=== PATIENT | female | born 1980 | race Caucasian/White ===

== ENCOUNTER 2016-04-22 15:42 | Emergency (ER) | payer BC ==
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
--- NOTE | 2016-04-22 16:20 | ED CLINICAL REPORT ---
Clinical Report - Physicians/Mid Levels [facility] [address] [place] [place] [address] 04/22/2016 15:44 Patient: JOHNY DUARTE Time Seen: 1644Apr 22 2016. Arrived- By private vehicle. Historian- patient. HISTORY OF PRESENT ILLNESS Chief Complaint: Injury to finger. (L thumb). The injury happened just prior to arrival. Patient is experiencing mild pain. Patient denies injury to the head. ( L thumb lac from knife). REVIEW OF SYSTEMS The patient sustained a laceration. No tingling. All systems otherwise negative, except as recorded above. PAST HISTORY The patient's dominant hand is the right. She has not had a prior injury to the same area. Tetanus immunization status is up-to-date. Problems: Chronic Back Pain. Vertigo. Dizziness. LNMP - Last Normal Menstrual Period. Contusion. Cervical Strain. Additional Surgeries: Adenoidectomy. Cholecystectomy. . Knee Surgery. Tonsillectomy. Tubal Ligation. Tympanostomy Tubes. Medications: None. Allergies: No Known Drug Allergy. SOCIAL HISTORY No drug use. ADDITIONAL NOTES The nursing notes have been reviewed. PHYSICAL EXAM Vital Signs: 04/22/2016 15:53 BP: 112/66. HR: 73. RR: 18. O2 saturation: 100%. Temp: 98.4 F. Appearance: Alert. No acute distress. Head: Head atraumatic. CVS: Normal heart rate and rhythm. Heart sounds normal. Respiratory: No respiratory distress. Breath sounds normal. Skin: Skin warm. Extremities: Left thumb: laceration- SEE LACERATION PROCEDURE NOTE. (dorsal proximal lac 0.5 cm, well approximated, good distal rom, and strength). No ecchymosis or puncture wound. Neuro, Vascular and Tendons: Vascular status intact. Capillary refill not prolonged. Motor intact. No functional tendon deficit. PROGRESS AND PROCEDURES Laceration Repair: Time: 1654Apr 22 2016. Time-out completed immediately before the procedure. Length: 1.0cm cm. Complexity: simple (closed with tissue adhesive). Closure of superficial layer. Skin adhesive used. Post-procedure: she is stable and there are no complications. Bleeding is controlled and neuro-vascular status is intact distal to the wound. Dressing applied. Tetanus immunization up-to-date. Course of Care: Pt with full rom, no neurovascular compromise. Full rom with good strength. No fb. NO signs of erythema/ or concern for infection. Patient is stable. Physical exam findings are improved. Symptoms better. Patient/family counseled. Disposition: Discharged. Condition: good. CLINICAL IMPRESSION Single superficial laceration to the right thumb. INSTRUCTIONS Limit use of your hand. (no water). OTC Medications: Take OTC medications according to label instructions. Available over the counter. Acetaminophen (available over the counter): take according to label instructions. Motrin (available over the counter): take according to label instructions. Follow-up: Follow up with your doctor in three days. Understanding of the discharge instructions verbalized by patient. (Electronically signed by Barbara Luciano P.A.-C 04/22/2016 17:15)
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
--- NOTE | 2016-04-22 16:20 | ED CLINICAL REPORT ---
Clinical Report - Physicians/Mid Levels [facility] [address] [place] [place] [address] 04/22/2016 15:44 Patient: JOHNY DUARTE Time Seen: 1644Apr 22 2016. Arrived- By private vehicle. Historian- patient. HISTORY OF PRESENT ILLNESS Chief Complaint: Injury to finger. (L thumb). The injury happened just prior to arrival. Patient is experiencing mild pain. Patient denies injury to the head. ( L thumb lac from knife). REVIEW OF SYSTEMS The patient sustained a laceration. No tingling. All systems otherwise negative, except as recorded above. PAST HISTORY The patient's dominant hand is the right. She has not had a prior injury to the same area. Tetanus immunization status is up-to-date. Problems: Chronic Back Pain. Vertigo. Dizziness. LNMP - Last Normal Menstrual Period. Contusion. Cervical Strain. Additional Surgeries: Adenoidectomy. Cholecystectomy. . Knee Surgery. Tonsillectomy. Tubal Ligation. Tympanostomy Tubes. Medications: None. Allergies: No Known Drug Allergy. SOCIAL HISTORY No drug use. ADDITIONAL NOTES The nursing notes have been reviewed. PHYSICAL EXAM Vital Signs: 04/22/2016 15:53 BP: 112/66. HR: 73. RR: 18. O2 saturation: 100%. Temp: 98.4 F. Appearance: Alert. No acute distress. Head: Head atraumatic. CVS: Normal heart rate and rhythm. Heart sounds normal. Respiratory: No respiratory distress. Breath sounds normal. Skin: Skin warm. Extremities: Left thumb: laceration- SEE LACERATION PROCEDURE NOTE. (dorsal proximal lac 0.5 cm, well approximated, good distal rom, and strength). No ecchymosis or puncture wound. Neuro, Vascular and Tendons: Vascular status intact. Capillary refill not prolonged. Motor intact. No functional tendon deficit. PROGRESS AND PROCEDURES Laceration Repair: Time: 1654Apr 22 2016. Time-out completed immediately before the procedure. Length: 1.0cm cm. Complexity: simple (closed with tissue adhesive). Closure of superficial layer. Skin adhesive used. Post-procedure: she is stable and there are no complications. Bleeding is controlled and neuro-vascular status is intact distal to the wound. Dressing applied. Tetanus immunization up-to-date. Course of Care: Pt with full rom, no neurovascular compromise. Full rom with good strength. No fb. NO signs of erythema/ or concern for infection. Patient is stable. Physical exam findings are improved. Symptoms better. Patient/family counseled. Disposition: Discharged. Condition: good. CLINICAL IMPRESSION Single superficial laceration to the right thumb. INSTRUCTIONS Limit use of your hand. (no water). OTC Medications: Take OTC medications according to label instructions. Available over the counter. Acetaminophen (available over the counter): take according to label instructions. Motrin (available over the counter): take according to label instructions. Follow-up: Follow up with your doctor in three days. Understanding of the discharge instructions verbalized by patient. (Electronically signed by Barbara Luciano P.A.-C 04/22/2016 17:15)
--- NOTE | 2016-04-22 19:16 | ED MAR SUMMARY ---
..... Medication Administration Record [facility] [address] [place], [place] [id number] Patient: JOHNY DUARTE Visit ID: [id number] 36y, F Weight: 73.4 kg Height/Length: 66 in BMI: 26.1 ALLERGIES: No Known Drug Allergy
--- NOTE | 2016-04-22 19:16 | ED MAR SUMMARY ---
..... Medication Administration Record [facility] [address] [place], [place] [id number] Patient: JOHNY DUARTE Visit ID: [id number] 36y, F Weight: 73.4 kg Height/Length: 66 in BMI: 26.1 ALLERGIES: No Known Drug Allergy
--- NOTE | 2016-04-22 19:16 | ED DISCHARGE INSTRUCTIONS ---
Patient: JOHNY DUARTE General Instructions [facility] VisitID: [id number] [place] [address] 36y, F Registration Date/Time: 04/22/2016 Single superficial laceration to the right thumb. INSTRUCTIONS Limit use of your hand. (no water). OTC Medications: Take OTC medications according to label instructions. Available over the counter. Acetaminophen (available over the counter): take according to label instructions. Motrin (available over the counter): take according to label instructions. Follow-up: Follow up with your doctor in three days. Understanding of the discharge instructions verbalized by patient. ADDITIONAL INFORMATION Laceration(Skin Glue) A laceration is a cut through the skin. You have a laceration that has been closed with a type of skin glue. Home Care Medications: Acetaminophen (Tylenol) or ibuprofen (Motrin, Advil) may be taken for pain, unless another pain medicine was prescribed. NOTE: If you have chronic liver or kidney disease or ever had a stomach ulcer or GI bleeding, talk with your doctor before using these medications. General Care: Keep the wound clean and dry. You may shower or bathe as usual, but do not use soaps, lotions, or ointments on the wound area. Do not scrub the wound. After bathing, pat the wound dry with a soft towel. If a bandage was applied and it becomes wet or dirty, replace it. Otherwise, change the bandage every 24 hours. Do not scratch, rub, or pick at the film. Do not place tape directly over the film. Do not apply liquids (such as peroxide), ointments, or creams to the wound while the film is in place. Most skin wounds heal without problems. However, an infection sometimes occurs despite proper treatment. Therefore, watch for the signs of infection listed below. Follow Up as directed by the doctor or our staff. The skin glue film will fall off naturally in 5 to 10 days. Get Prompt Medical Attention if any of the following occur: Signs of infection: Fever of 100.4F (38C) or higher, or as directed by your healthcare provider Increasing pain in the wound Increasing redness or swelling Pus coming from the wound Wound bleeds more than a small amount or bleeding doesnt stop Wound edges come apart You feel numbness or weakness in the wound area that doesnt go away You have been given the following additional information: Laceration, Extremity (Skin Glue) Limit use of your hand. (Electronically signed by Barbara Luciano P.A.-C 04/22/2016 17:15)
--- NOTE | 2016-04-22 19:16 | ED MED RECONCILIATION SUMMARY ---
Patient: JOHNY DUARTE Medication Reconciliation Report [facility] VisitID: [id number] [place] [address] 36y, F Registration Date/Time: 04/22/2016 Weight: 73.4 kg Height/Length: 66 in. BMI: 26.1 ALLERGIES: No Known Drug Allergy The patient's Home Medications are listed below: NONE. The source(s) of the original Home Medication information: Not obtained. The following Medications were given to the patient in the Emergency Department: None. The following Medications were prescribed to the patient: Take OTC medications according to label instructions. Available over the counter. -- Barbara Luciano, P.A.-C Acetaminophen (available over the counter): take according to label instructions. -- Barbara Luciano, P.A.-C Motrin (available over the counter): take according to label instructions. -- Barbara Luciano, P.A.-C
--- NOTE | 2016-04-22 19:16 | ED MED RECONCILIATION SUMMARY ---
Patient: JOHNY DUARTE Medication Reconciliation Report [facility] VisitID: [id number] [place] [address] 36y, F Registration Date/Time: 04/22/2016 Weight: 73.4 kg Height/Length: 66 in. BMI: 26.1 ALLERGIES: No Known Drug Allergy The patient's Home Medications are listed below: NONE. The source(s) of the original Home Medication information: Not obtained. The following Medications were given to the patient in the Emergency Department: None. The following Medications were prescribed to the patient: Take OTC medications according to label instructions. Available over the counter. -- Barbara Luciano, P.A.-C Acetaminophen (available over the counter): take according to label instructions. -- Barbara Luciano, P.A.-C Motrin (available over the counter): take according to label instructions. -- Barbara Luciano, P.A.-C
== END 2016-04-22 16:20 | disposition home or self-care (01) ==
LOC: ED SRH 15:42
DX: S61.012A Laceration without foreign body of left thumb without damage to nail, initial encounter (principal); W26.0XXA Contact with knife, initial encounter; Y93.89 Activity, other specified; Y92.9 Unspecified place or not applicable; Y99.9 Unspecified external cause status